=== PATIENT | male | born 2005 | race Caucasian/White ===

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

== ENCOUNTER → 2023-12-09 | Outpatient (CLI) | payer OTHER | END | disposition home or self-care (01) | LOC: US 12-02 10:30 | PROVIDERS: ATTEND Physician Assistant | DX: N44.2 Benign cyst of testis (principal); N50.89 Other specified disorders of the male genital organs ==